=== PATIENT | male | born 1970 | race Caucasian/White ===

== ENCOUNTER 2017-02-01 13:31 | Emergency (ER) | payer OTHER ==
[~2017-02-01] VITALS: Ht 182.9 cm; Wt 104.5 kg
[~2017-02-01 13:31] MED LIST: METF500T4 PO
[2017-02-01] MEDS ORDERED: METF500T4 PO (13:52)
[2017-02-01] MEDS ORDERED: GLIP5 PO (13:52)
[2017-02-01 13:56] LABS: GLUCOSE,POINT OF CARE 228 MG/DL (70-110)
[2017-02-01 15:29] VITALS: BP 139/96
== END 2017-02-01 15:30 | disposition home or self-care (01) ==
LOC: EMS 13:36
DX: M79.645 Pain in left finger(s) (principal); G62.9 Polyneuropathy, unspecified; F41.9 Anxiety disorder, unspecified; E11.9 Type 2 diabetes mellitus without complications
CPT/HCPCS: 82962; 99282

== ENCOUNTER 2017-08-11 16:33 | Emergency (ER) | payer OTHER ==
[~2017-08-11] VITALS: Ht 182.9 cm; Wt 104.5 kg
[~2017-08-11 16:33] MED LIST changes: +GLIP5 PO
[2017-08-11 16:42] LABS: GLUCOSE,POINT OF CARE 118 MG/DL (70-110)
[2017-08-11] MEDS ORDERED: IBUPROFEN 800 MG TABLET PO ONE (17:00)
[2017-08-11 17:36] LABS: INFLUENZA TYPE B NEGATIVE FOR TYPE B (NEGATIVE)
[2017-08-11] MEDS ORDERED: LOPERAMIDE HCL 2 MG CAPSULE PO ONE (17:45)
[2017-08-11] MEDS ORDERED: OSELTAMIVIR PHOSPHATE 75 MG CAPSULE PO ONE (17:45)
[2017-08-11] MEDS ORDERED: SODIUM CHLORIDE 0.9% 1,000 ML IV ONE ×2 (18:16→18:30)
[2017-08-11 19:12] VITALS: BP 130/75
== END 2017-08-11 19:14 | disposition home or self-care (01) ==
LOC: EMS 16:34
DX: N39.0 Urinary tract infection, site not specified (principal); J11.1 Influenza due to unidentified influenza virus with other respiratory manifestations; E11.9 Type 2 diabetes mellitus without complications; F41.9 Anxiety disorder, unspecified; R19.7 Diarrhea, unspecified
CPT/HCPCS: 82962; 87804; 99284; J7030

== ENCOUNTER 2019-01-10 09:14 | Emergency (ER) | payer OTHER ==
[~2019-01-10] VITALS: Ht 185.4 cm; Wt 106.8 kg
[~2019-01-10 09:14] MED LIST changes: +METF-960 PO; -METF500T4 PO
[2019-01-10 09:30] LABS: GLUCOSE,POINT OF CARE 279 MG/DL (70-110)
[2019-01-10] MEDS ORDERED: GENTAMICIN SULFATE 0.3% OPHTHALMIC SOLUTION 5 ML OU ONE (11:15)
[2019-01-10] MEDS ORDERED: FLUORESCEIN SODIUM 1 MG STRIP ONE (11:32)
[2019-01-10 11:41] VITALS: BP 131/91
== END 2019-01-10 11:49 | disposition home or self-care (01) ==
LOC: EMS 09:14
DX: H10.12 Acute atopic conjunctivitis, left eye (principal); E11.9 Type 2 diabetes mellitus without complications; F41.9 Anxiety disorder, unspecified; Z79.84 Long term (current) use of oral hypoglycemic drugs

== ENCOUNTER 2020-10-11 13:09 | Emergency (ER) | payer MEDICAID, OTHER ==
[~2020-10-11] VITALS: Ht 185.4 cm; Wt 102.3 kg
[2020-10-11] MEDS ORDERED: IBUPROFEN 600 MG TABLET PO ONE (14:15)
[2020-10-11 14:45] VITALS: BP 137/81
== END 2020-10-11 14:45 | disposition home or self-care (01) ==
LOC: EMS 13:13
DX: S43.004A Unspecified dislocation of right shoulder joint, initial encounter (principal); F41.9 Anxiety disorder, unspecified; E11.9 Type 2 diabetes mellitus without complications; Z79.84 Long term (current) use of oral hypoglycemic drugs; W19.XXXA Unspecified fall, initial encounter; Y93.89 Activity, other specified; Y92.89 Other specified places as the place of occurrence of the external cause; Y99.8 Other external cause status
CPT/HCPCS: 23650; 99284; 73030-TC; Z7502; Z7610

== ENCOUNTER 2021-12-30 16:10 | Emergency (ER) | payer MEDICAID, OTHER ==
[~2021-12-30] VITALS: Ht 185.4 cm; Wt 104.5 kg
[~2021-12-30 16:10] MED LIST changes: +METF-1211 PO; -METF-960 PO
[2021-12-30] MEDS ORDERED: ERTU5TAB PO (16:17)
[2021-12-30 16:49] VITALS: BP 141/88
[2021-12-30 17:05] LABS: BASOPHILS % (AUTO) 0.7 % (0.0-2.0); EOSINOPHILS % (AUTO) 2.6 % (1.0-6.0); HEMATOCRIT 43.9 % (41-53); HEMOGLOBIN 15.4 g/dL (13.5-17.5); LYMPHOCYTES # (AUTO) 2.1 K/uL (1.0-4.8); MEAN CORPUSCULAR HGB CONC 35.1 G/dL (31.0-37.0); MEAN CORPUSCULAR VOLUME 88 fL (80-100); MONOCYTES % (AUTO) 10.7 % (2.0-9.0); NEUTROPHILS # (AUTO) 6.2 K/uL (1.8-7.7); PLATELET COUNT (AUTO) 396 K/uL (150-450); RED BLOOD CELL COUNT(AUTO) 4.99 MIL/uL (4.50-5.90); RED CELL DISTRIBUTION WIDTH 12.8 % (11.5-14.5)
[2021-12-30 17:14] LABS: CALCIUM, TOTAL 9.2 mg/dL (8.8-10.5); CREATININE 1.42 mg/dL (0.60-1.30); POTASSIUM 3.9 mmol/L (3.5-5.1)
[2021-12-30 17:35] LABS: APPEARANCE,URINE CLEAR (CLEAR); BILIRUBIN,URINE NEGATIVE (NEGATIVE); GLUCOSE, URINE (UA) >=1000 mg/dL (NEGATIVE); KETONES,URINE NEGATIVE (NEGATIVE); LEUKOCYTE ESTERASE ,URINE NEGATIVE (NEGATIVE); NITRATE,URINE NEGATIVE (NEGATIVE); OCCULT BLOOD,URINE NEGATIVE (NEGATIVE); PROTEIN,URINE NEGATIVE (NEGATIVE); SPECIFIC GRAVITIY, URINE 1.039 (1.003-1.030); UROBILINOGEN,URINE <=1.0 mg/dL (<=1.0)
[2021-12-30 17:40] LABS: BACTERIA,URINE None Seen /HPF (None Seen); RBC,URINE None Seen /HPF (0-2); WBC,URINE None Seen /HPF (0-5)
== END 2021-12-30 17:57 | disposition home or self-care (01) ==
LOC: EMS 16:10
DX: R35.0 Frequency of micturition (principal); F41.9 Anxiety disorder, unspecified; E11.9 Type 2 diabetes mellitus without complications; Z79.84 Long term (current) use of oral hypoglycemic drugs
CPT/HCPCS: 80048; 81001; 82962; 85025; 99283

== ENCOUNTER 2022-09-06 09:17 | Inpatient (IN) | payer OTHER ==
[~2022-09-06] VITALS: Ht 185.4 cm; Wt 109.9 kg
[~2022-09-06 09:17] MED LIST changes: +ERTU5TAB PO; -GLIP5 PO; +GLIP5TAB12 PO
[2022-09-06] MEDS ORDERED: ATOR20TA86 PO (09:21)
[2022-09-06 10:33] LABS: BASOPHILS % (AUTO) 0.7 % (0.0-2.0); HEMATOCRIT 45.8 % (41-53); HEMOGLOBIN 15.6 g/dL (13.5-17.5); LYMPHOCYTES # (AUTO) 2.1 K/uL (1.0-4.8); LYMPHOCYTES % (AUTO) 22.1 % (22.0-44.0); MEAN CORPUSCULAR HEMOGLOBIN 30.7 pg (26.0-34.0); MEAN CORPUSCULAR HGB CONC 34.1 G/dL (31.0-37.0); MEAN CORPUSCULAR VOLUME 90 fL (80-100); MONOCYTES # (AUTO) 0.8 K/uL (0.1-1.0); MONOCYTES % (AUTO) 8.8 % (2.0-9.0); NEUTROPHILS % (AUTO) 63.4 % (40.0-70.0); PLATELET COUNT (AUTO) 348 K/uL (150-450); RED BLOOD CELL COUNT(AUTO) 5.08 MIL/uL (4.50-5.90); RED CELL DISTRIBUTION WIDTH 12.5 % (11.5-14.5)
[2022-09-06 10:36] LABS: CALCIUM, TOTAL 9.8 mg/dL (8.8-10.5); CREATININE 1.42 mg/dL (0.60-1.30); POTASSIUM 4.8 mmol/L (3.5-5.1)
[2022-09-06 10:42] LABS: INR 0.9 (0.9-1.1); PROTHROMBIN TIME 10.1 SEC (9.4-11.6)
[2022-09-06 10:43] LABS: ALBUMIN 3.9 g/dL (3.4-5.0); BILIRUBIN,TOTAL 1.4 mg/dL (0.1-1.0); TOTAL PROTEIN, SERUM 7.4 g/dL (6.4-8.2)
[2022-09-06] MEDS ORDERED: ASPIRIN 325 MG TABLET PO ONE (11:00)
[2022-09-06] MEDS ORDERED: ATORVASTATIN CALCIUM 40 MG TABLET PO ONE (11:00)
[2022-09-06 12:03] LABS: COVID AG,FIA SOURCE NASAL SWAB
[2022-09-06] MEDS ORDERED: HEPARIN SODIUM 25000 UNITS/D5W 250 ML IV PRN (12:30)
[2022-09-06] MEDS ORDERED: MORPHINE SULFATE 4 MG/ML SYRINGE IVP PRN (12:30)
[2022-09-06] MEDS ORDERED: DEXTROSE 50%-WATER 25 GM/50 ML SYRINGE IVP PRN (12:30)
[2022-09-06] MEDS ORDERED: ONDANSETRON HCL 4 MG/2 ML VIAL IVP PRN (12:30)
[2022-09-06] MEDS ORDERED: ACETAMINOPHEN 325 MG TABLET PO PRN (12:30)
[2022-09-06] MEDS ORDERED: HEPARIN SODIUM,PORCINE 5,000 UNITS/ML VIAL IVP PRN ×3 (12:45→12:52)
[2022-09-06] MEDS: CARVEDILOL 6.25 MG TABLET PO SCH ×2 (13:35→20:42)
[2022-09-06] MEDS ORDERED: HEPARIN SODIUM,PORCINE 5,000 UNITS/ML VIAL SQ SCH (16:00)
[2022-09-06 16:14] LABS: AMPHET/METH SCREEN,URINE NEGATIVE (NEGATIVE); BARBITURATE SCREEN, URINE NEGATIVE (NEGATIVE); BENZODIAZEPINES SCREEN,URINE NEGATIVE (NEGATIVE); CANNABINOID SCREEN,URINE NEGATIVE (NEGATIVE); COCAINE SCREEN,URINE NEGATIVE (NEGATIVE); METHADONE SCREEN, URINE NEGATIVE (NEGATIVE); OPIATE SCREEN,URINE NEGATIVE (NEGATIVE); PHENCYCLIDINE SCREEN,URINE NEGATIVE (NEGATIVE)
[2022-09-06] MEDS: DOCUSATE SODIUM 100 MG CAPSULE PO SCH (20:42)
[2022-09-06] MEDS ORDERED: METOPROLOL SUCCINATE 50 MG ER TABLET PO ONE (21:00)
[2022-09-06] MEDS: INSULIN LISPRO 100 UNITS/ML SQ PRN (23:20)
[2022-09-07 00:16] VITALS: BP 136/89
[2022-09-07 01:11] LABS: GLUCOMETER DEV NAME(LOC) 5S.1B; GLUCOSE,POINT OF CARE 266 MG/DL (70-110)
[2022-09-07 05:27] VITALS: BP 137/90
[2022-09-07] MEDS ORDERED: PNEUMOCOCCAL VACCINE POLYVALENT 0.5 ML VIAL [PPSV23] IM. ONE (05:30)
[2022-09-07] MEDS: INSULIN LISPRO 100 UNITS/ML SQ PRN (06:34)
[2022-09-07 07:41] VITALS: BP 137/91
[2022-09-07] MEDS: CARVEDILOL 6.25 MG TABLET PO SCH (08:23)
[2022-09-07] MEDS: DOCUSATE SODIUM 100 MG CAPSULE PO SCH (08:23)
[2022-09-07] MEDS ORDERED: ATORVASTATIN CALCIUM 40 MG TABLET PO SCH ×2 (09:00)
[2022-09-07] MEDS ORDERED: ASPIRIN 81 MG CHEWABLE TABLET PO SCH (09:00)
[2022-09-07] MEDS ORDERED: FAMOTIDINE 20 MG TABLET PO SCH (09:00)
[2022-09-07] MEDS ORDERED: GlipiZIDE 5 MG TABLET PO SCH (10:05)
[2022-09-07] MEDS ORDERED: CLOP75TA60 PO (10:21)
[2022-09-07] MEDS ORDERED: ASPI81TA87 PO (10:21)
[2022-09-07] MEDS ORDERED: CARV12 PO (10:22)
[2022-09-07] MEDS ORDERED: CLOPIDOGREL BISULFATE 300 MG TABLET PO STA (10:26)
[2022-09-07] MEDS ORDERED: ISOSORBIDE MONONITRATE 30 MG ER TABLET PO SCH (10:30)
[2022-09-07] MEDS ORDERED: ISOS30TA92 PO (10:45)
[2022-09-07 17:26] LABS: GLUCOMETER DEV NAME(LOC) 5S.1B; GLUCOSE,POINT OF CARE 285 MG/DL (70-110)
[2022-09-07] MEDS ORDERED: CARVEDILOL 6.25 MG TABLET PO SCH (21:00)
[2022-09-08] MEDS ORDERED: CLOPIDOGREL BISULFATE 75 MG TABLET PO SCH (09:00)
[2022-09-11] MEDS ORDERED: ASPI81TA87 PO (08:08)
[2022-09-11] MEDS ORDERED: ATOR10TA PO (08:08)
== END 2022-09-07 11:05 | disposition home or self-care (01) | DRG 190 ==
LOC: EMS 09:35 → AHU 17:25 → 5S 23:19
PROVIDERS: ADMIT Internal Medicine; ATTEND Internal Medicine
DX: I24.9 Acute ischemic heart disease, unspecified (principal); I21.4 Non-ST elevation (NSTEMI) myocardial infarction; E11.65 Type 2 diabetes mellitus with hyperglycemia; E66.9 Obesity, unspecified; E78.5 Hyperlipidemia, unspecified; I10 Essential (primary) hypertension; F41.9 Anxiety disorder, unspecified; Z20.822 Contact with and (suspected) exposure to COVID-19; Z83.3 Family history of diabetes mellitus; Z79.899 Other long term (current) drug therapy; Z68.32 Body mass index [BMI] 32.0-32.9, adult
CPT/HCPCS: 71045; 80053; 82962; 83880; 84484; 85025; 85610; 85730; 93005; 93306; 96365; 99285; J1644; 36415-L1; 36415-TC

== ENCOUNTER 2022-09-10 08:14 | Emergency (ER) | payer OTHER ==
[~2022-09-10] VITALS: Ht 182.9 cm; Wt 81.8 kg
[~2022-09-10 08:14] MED LIST changes: -ERTU5TAB PO; -GLIP5TAB12 PO; +ISOS30TA92 PO; -METF-1211 PO
[2022-09-10 08:28] VITALS: BP 134/90
[2022-09-10 08:53] LABS: EOSINOPHILS % (AUTO) 4.7 % (1.0-6.0); HEMATOCRIT 45.8 % (41-53); HEMOGLOBIN 15.6 g/dL (13.5-17.5); LYMPHOCYTES # (AUTO) 1.5 K/uL (1.0-4.8); MEAN CORPUSCULAR HEMOGLOBIN 30.5 pg (26.0-34.0); MEAN CORPUSCULAR VOLUME 90 fL (80-100); MONOCYTES # (AUTO) 0.9 K/uL (0.1-1.0); MONOCYTES % (AUTO) 9.5 % (2.0-9.0); NEUTROPHILS # (AUTO) 6.2 K/uL (1.8-7.7); NEUTROPHILS % (AUTO) 67.8 % (40.0-70.0); PLATELET COUNT (AUTO) 361 K/uL (150-450); RED CELL DISTRIBUTION WIDTH 12.4 % (11.5-14.5)
[2022-09-10 09:01] LABS: CALCIUM, TOTAL 9.7 mg/dL (8.8-10.5); CREATININE 1.31 mg/dL (0.60-1.30); POTASSIUM 4.2 mmol/L (3.5-5.1)
[2022-09-10 09:07] LABS: ALBUMIN 3.8 g/dL (3.4-5.0); BILIRUBIN,TOTAL 1.7 mg/dL (0.1-1.0); TOTAL PROTEIN, SERUM 7.7 g/dL (6.4-8.2)
[2022-09-10 09:16] LABS: PROTHROMBIN TIME 10.3 SEC (9.4-11.6)
[2022-09-10] MEDS ORDERED: LORazepam 1 MG TABLET PO ONE (10:15)
[2022-09-11] MEDS ORDERED: ASPI81TA87 PO (08:08)
[2022-09-11] MEDS ORDERED: ATOR10TA PO (08:08)
[2022-09-12] MEDS ORDERED: ATOR-2 PO (14:47)
[2022-09-12] MEDS ORDERED: CARV12.530 PO (14:49)
[2022-09-12] MEDS ORDERED: CLOP-31 PO (14:50)
== END 2022-09-10 10:21 | disposition left against medical advice (07) ==
LOC: EMS 08:18
DX: R07.9 Chest pain, unspecified (principal); F41.9 Anxiety disorder, unspecified; E11.9 Type 2 diabetes mellitus without complications
CPT/HCPCS: 71045; 80053; 83880; 84484; 85025; 85610; 85730; 93005; 99285

== ENCOUNTER 2024-07-08 12:33 | Emergency (ER) | payer OTHER ==
[~2024-07-08] VITALS: Ht 185.4 cm; Wt 100.0 kg
[~2024-07-08 12:33] MED LIST changes: +ASPI81TA87 PO; +ATOR-2 PO; +CARV12.530 PO; +CLOP-31 PO; -ISOS30TA92 PO
[2024-07-08] MEDS ORDERED: METF-1211 PO (12:41)
[2024-07-08] MEDS ORDERED: GLIP10TA17 PO (12:41)
[2024-07-08 12:43] VITALS: TEMP 98.4
[2024-07-08 15:14] LABS: BASOPHILS % (AUTO) 1.4 % (0.0-2.0); EOSINOPHILS % (AUTO) 9.4 % (1.0-6.0); HEMATOCRIT 45.4 % (41-53); HEMOGLOBIN 15.7 g/dL (13.5-17.5); LYMPHOCYTES # (AUTO) 2.3 K/uL (1.0-4.8); MEAN CORPUSCULAR HEMOGLOBIN 31.1 pg (26.0-34.0); MEAN CORPUSCULAR HGB CONC 34.6 G/dL (31.0-37.0); MEAN CORPUSCULAR VOLUME 90 fL (80-100); MONOCYTES % (AUTO) 9.3 % (2.0-9.0); NEUTROPHILS % (AUTO) 57.9 % (40.0-70.0); PLATELET COUNT (AUTO) 386 K/uL (150-450); RED BLOOD CELL COUNT(AUTO) 5.05 MIL/uL (4.50-5.90); RED CELL DISTRIBUTION WIDTH 12.7 % (11.5-14.5); WHITE BLOOD COUNT (AUTO) 10.3 K/uL (4.5-11.0)
[2024-07-08 15:24] LABS: ANION GAP 9 mmol/L (8-16); CALCIUM, TOTAL 9.4 mg/dL (8.8-10.5); CARBON DIOXIDE 27 mmol/L (22-29); CHLORIDE 98 mmol/L (98-107); CREATININE 1.24 mg/dL (0.60-1.30); GLOMERULAR FILTR. RATE CALC > 60 mL/min (>60); GLUCOSE,RANDOM 262 mg/dL (70-110); POTASSIUM 3.9 mmol/L (3.5-5.1); SODIUM SERUM 134 mmol/L (136-145); UREA NITROGEN, BLOOD 13 mg/dL (7-18)
[2024-07-08 15:34] LABS: TROPONIN I-HIGH SENSITIVITY 12 ng/L (<76)
[2024-07-08 16:14] VITALS: BP 145/85; PULSE 95; RESP 18; O2SAT 99
== END 2024-07-08 16:14 | disposition home or self-care (01) ==
LOC: EMS 13:21
DX: E11.65 Type 2 diabetes mellitus with hyperglycemia (principal); R55 Syncope and collapse; F41.9 Anxiety disorder, unspecified
CPT/HCPCS: 80048; 82962; 84484; 85025; 93005; 99284